=== PATIENT | male | born 1950 | race Caucasian/White ===

== ENCOUNTER 2018-08-19 10:18 | Day surgery (SDC) | payer MEDICARE ==
[~2018-08-19] VITALS: Ht 180.3 cm; Wt 99.0 kg
[2018-08-19] MEDS ORDERED: SODIUM CHLORIDE 0.9% 500 ML IV PRN (11:14)
[2018-08-19 11:24] VITALS: BP 151/114
[2018-08-19] MEDS ORDERED: SODIUM CHLORIDE FLUSH 10ML SYR IVF SCH (11:30)
[2018-08-19] MEDS ORDERED: DILT-8 PO (11:41)
[2018-08-19] MEDS ORDERED: DIPH25CA61 PO (11:41)
[2018-08-19] MEDS ORDERED: APIX2.5T PO (11:41)
[2018-08-19] MEDS ORDERED: FURO-93 PO (11:41)
[2018-08-19 11:42] LABS: ANION GAP 7 mmol/L (5-15); CALCIUM 9.4 mg/dL (8.5-10.1); CHLORIDE 107 mmol/L (98-107); CREATININE 1.03 mg/dL (0.7-1.3)
[2018-08-19] MEDS ORDERED: PROPOFOL 10 MG/ML, 20ML ONE (14:51)
== END 2018-08-19 16:38 | disposition home or self-care (01) ==
LOC: CACL 10:18
PROVIDERS: ATTEND Internal Medicine Cardiovascular Disease
DX: I48.91 Unspecified atrial fibrillation (principal); I50.9 Heart failure, unspecified
CPT/HCPCS: 36415; 80048; 92960; J2704

== ENCOUNTER 2018-09-13 09:48 | Inpatient (IN) | payer MEDICARE ==
[~2018-09-13] VITALS: Ht 180.3 cm; Wt 98.4 kg
[~2018-09-13 09:48] MED LIST: APIX2.5T PO; DILT-8 PO; DIPH25CA61 PO; FURO-93 PO
[2018-09-13] MEDS ORDERED: BISACODYL 10 MG SUPP PR PRN (12:00)
[2018-09-13] MEDS ORDERED: ZOLPIDEM 5MG TABLET PO PRN (12:00)
[2018-09-13] MEDS ORDERED: BISACODYL 5 MG EC TABLET PO PRN (12:00)
[2018-09-13] MEDS ORDERED: ACETAMINOPHEN 325 MG TABLET PO PRN (12:00)
[2018-09-13] MEDS ORDERED: ONDANSETRON 2MG/ML, 2ML IVPush PRN (12:00)
[2018-09-13 12:13] LABS: ANION GAP 5 mmol/L (5-15); CALCIUM 8.8 mg/dL (8.5-10.1); CHLORIDE 109 mmol/L (98-107); CHOLESTEROL, TOTAL 195 mg/dL (140-239); CREATININE 0.94 mg/dL (0.7-1.3); TRIGLYCERIDES 176 mg/dL (50-200); VLDL CHOLESTEROL 35 mg/dL (0-25)
[2018-09-13] MEDS: SOTALOL 80MG TABLET PO SCH ×2 (12:15→21:14)
[2018-09-13 12:17] LABS: CHOL/HDL RATIO 4.1; FREE T4 (FREE THYROXINE) 0.94 ng/dL (0.76-1.46); HDL CHOL % 24 % (26-37); HDL CHOLESTEROL (DIRECT) 47 mg/dL (40-60); LDL CHOLESTEROL,CALCULATED 113 mg/dL (54-169); LDL/HDL RATIO 2.4 (0.5-3.0); TROPONIN I < 0.015 ng/mL (0.000-0.045)
[2018-09-13 12:26] VITALS: BP 137/86
[2018-09-13 16:12] LABS: TROPONIN I < 0.015 ng/mL (0.000-0.045)
[2018-09-13 20:35] VITALS: BP 149/76
[2018-09-13 21:12] VITALS: BP 127/83
[2018-09-13] MEDS: APIXABAN 5 MG TABLET PO SCH (21:14)
[2018-09-13 23:05] LABS: TROPONIN I < 0.015 ng/mL (0.000-0.045)
[2018-09-14 03:15] VITALS: BP 131/88
[2018-09-14 07:29] VITALS: BP 145/92
[2018-09-14] MEDS: APIXABAN 5 MG TABLET PO SCH ×2 (07:55→20:24)
[2018-09-14] MEDS: FUROSEMIDE 20 MG TABLET PO SCH (07:56)
[2018-09-14] MEDS: SOTALOL 80MG TABLET PO SCH ×2 (07:56→20:25)
[2018-09-14 12:51] VITALS: BP 155/97
[2018-09-14 20:00] VITALS: BP 135/80
[2018-09-14 20:21] VITALS: BP 156/85
[2018-09-15 00:57] VITALS: BP 152/89
[2018-09-15 07:56] VITALS: BP 143/95
[2018-09-15] MEDS: FUROSEMIDE 20 MG TABLET PO SCH (10:55)
[2018-09-15] MEDS: APIXABAN 5 MG TABLET PO SCH ×2 (10:55→22:07)
[2018-09-15] MEDS: SOTALOL 80MG TABLET PO SCH ×2 (10:55→22:07)
[2018-09-15 12:55] VITALS: BP 154/78
[2018-09-15 20:00] VITALS: BP 137/69
[2018-09-15 22:06] VITALS: BP 145/92
[2018-09-16 02:00] VITALS: BP 121/76
[2018-09-16 08:10] VITALS: BP 135/95
[2018-09-16] MEDS: SOTALOL 80MG TABLET PO SCH ×2 (08:15→18:33)
[2018-09-16] MEDS: APIXABAN 5 MG TABLET PO SCH (08:15)
[2018-09-16] MEDS: FUROSEMIDE 20 MG TABLET PO SCH (08:15)
[2018-09-16] MEDS ORDERED: PROPOFOL 10 MG/ML, 20ML ONE (11:18)
[2018-09-16 14:39] VITALS: BP 151/88
[2018-09-16] MEDS ORDERED: SOTA80TA18 PO (14:51)
[2018-09-16] MEDS ORDERED: APIX5TAB PO (14:51)
== END 2018-09-16 18:36 | disposition home or self-care (01) | DRG 309 ==
LOC: 5SO 09:48
PROVIDERS: ADMIT Internal Medicine Cardiovascular Disease; ATTEND Internal Medicine Cardiovascular Disease
PROC: 5A2204Z Restoration of Cardiac Rhythm, Single (ICD-10-PCS; principal; 2018-09-13)
DX: I48.0 Paroxysmal atrial fibrillation (principal); D68.69 Other thrombophilia; I50.30 Unspecified diastolic (congestive) heart failure; I11.0 Hypertensive heart disease with heart failure; Z79.01 Long term (current) use of anticoagulants; Z87.891 Personal history of nicotine dependence
CPT/HCPCS: 36415; 71046; 80048; 80061; 84439; 84443; 84484; 85014; 85018; 92960; 93005; G0378; J2704

== ENCOUNTER → 2018-10-06 | Outpatient (CLI) | payer MEDICARE ==
[~2018-10-06] MED LIST changes: +APIX5TAB PO; +SOTA80TA18 PO
== END | disposition home or self-care (01) ==
LOC: CVU 14:20
PROVIDERS: ATTEND Internal Medicine Cardiovascular Disease
DX: I08.1 Rheumatic disorders of both mitral and tricuspid valves (principal); I11.0 Hypertensive heart disease with heart failure; I50.33 Acute on chronic diastolic (congestive) heart failure; I48.91 Unspecified atrial fibrillation; E78.5 Hyperlipidemia, unspecified
CPT/HCPCS: 93306

== ENCOUNTER → 2019-06-01 | Outpatient (CLI) | payer MEDICARE ==
[~2019-06-01] MED LIST changes: +ACET325T26 PO; +COLC0.6C3 PO; +DILT120C11 PO; +LISI-424 PO; +OMNIPAQUE 350 MG/ML, 150 ML BOTTLE ONE; +SOTA80TA PO
[2019-06-01 15:27] LABS: BASOPHILS # (AUTO) 0.03 x10^3/uL (0-0.1); BASOPHILS % (AUTO) 1 % (0-1); EOSINOPHILS # (AUTO) 0.22 x10^3/uL (0-0.4); EOSINOPHILS % (AUTO) 3 % (1-7); LYMPHOCYTES # (AUTO) 1.61 x10^3/uL (1-3.4); LYMPHOCYTES % (AUTO) 24 % (22-44); MD NO; MEAN CORPUSCULAR HEMOGLOBIN 31.3 pg (27.5-34.5); MEAN CORPUSCULAR HGB CONC 33.1 g/dL (33.2-36.2); MEAN CORPUSCULAR VOLUME 94.6 fL (81-97); MEAN PLATELET VOLUME 7.4 fL (7.4-10.4); MONOCYTES # (AUTO) 0.43 x10^3/uL (0.2-0.8); MONOCYTES % (AUTO) 7 % (2-9); NEUTROPHILS % (AUTO) 65 % (42-75); PLATELET COUNT 262 x10^3/uL (130-400); RED BLOOD COUNT 5.02 x10^6/uL (4.38-5.82); RED CELL DISTRIBUTION WIDTH 13.5 % (9.4-14.8)
[2019-06-01 15:34] LABS: CALCIUM 9.1 mg/dL (8.5-10.1); CREATININE 0.95 mg/dL (0.7-1.3)
[2019-06-01 15:46] LABS: ANION GAP 6 mmol/L (5-15); CHLORIDE 105 mmol/L (98-107)
== END | disposition home or self-care (01) ==
LOC: CFH 12:52
PROVIDERS: ATTEND Internal Medicine Cardiovascular Disease
DX: I48.91 Unspecified atrial fibrillation (principal); Z79.899 Other long term (current) drug therapy
CPT/HCPCS: 71046; 75572; 80048; 82565; 85025; Q9967

== ENCOUNTER 2019-06-03 06:25 | Observation (INO) | payer MEDICARE ==
[2019-06-01 17:30] VITALS: BP 145/82
[~2019-06-03] VITALS: Ht 180.3 cm; Wt 92.2 kg
[~2019-06-03 06:25] MED LIST changes: -ACET325T26 PO; -COLC0.6C3 PO; -OMNIPAQUE 350 MG/ML, 150 ML BOTTLE ONE
[2019-06-03] MEDS ORDERED: SODIUM CHLORIDE 0.9% 1,000 ML IV SCH ×2 (07:02→07:30)
[2019-06-03] MEDS ORDERED: LIDOCAINE 1%, 20ML ONE (07:26)
[2019-06-03] MEDS ORDERED: MIDAZOLAM 1 MG/ML, 2ML ONE (08:14)
[2019-06-03] MEDS ORDERED: FENTANYL PF 250 MCG/5ML ONE (08:17)
[2019-06-03] MEDS ORDERED: SUCCINYLCHOLINE 20 MG/ML, 10ML ONE (08:47)
[2019-06-03] MEDS ORDERED: PROPOFOL 10 MG/ML, 20ML ONE (08:47)
[2019-06-03] MEDS ORDERED: ROCURONIUM 10MG/ML,5ML ONE (08:47)
[2019-06-03] MEDS ORDERED: DEXAMETHASONE 4 MG/ML, 1ML ONE (08:47)
[2019-06-03] MEDS ORDERED: HEPARIN 1,000 UNITS/ML, 10ML ONE ×3 (09:54)
[2019-06-03] MEDS ORDERED: ONDANSETRON 2MG/ML, 2ML ONE (11:33)
[2019-06-03] MEDS ORDERED: FENTANYL PF 100 MCG/2ML IV PRN (12:00)
[2019-06-03] MEDS ORDERED: LABETALOL 5MG/ML, 20ML IV PRN (12:00)
[2019-06-03] MEDS: APIXABAN 5 MG TABLET PO SCH ×2 (12:00→21:52)
[2019-06-03] MEDS ORDERED: EPHEDRINE 50 MG/ML, 1ML IVPush PRN (12:00)
[2019-06-03] MEDS ORDERED: MEPERIDINE/PF 25MG/ML,1ML IVPush PRN (12:00)
[2019-06-03] MEDS ORDERED: PROMETHAZINE 12.5 MG SUPP PR PRN (12:00)
[2019-06-03] MEDS ORDERED: HYDROmorphone 2 MG/ML, 1ML IVPush PRN (12:00)
[2019-06-03] MEDS ORDERED: hydrALAzine 20 MG/ML, 1ML IV PRN (12:00)
[2019-06-03] MEDS ORDERED: ACETAMINOPHEN 325 MG TABLET PO PRN ×2 (12:00)
[2019-06-03] MEDS ORDERED: ONDANSETRON ODT 8 MG PO PRN (12:00)
[2019-06-03] MEDS ORDERED: HALOPERIDOL 5 MG/ML IV PRN (12:00)
[2019-06-03] MEDS ORDERED: OXYcodone 5 MG/5 ML ORAL.SOL UDC PO PRN (12:00)
[2019-06-03] MEDS ORDERED: ALBUTEROL SULFATE 2.5 MG/3 ML NPPB PRN (12:00)
[2019-06-03] MEDS ORDERED: DIPHENHYDRAMINE 25 MG CAPSULE PO SCH (12:00)
[2019-06-03] MEDS ORDERED: DIAZEPAM 5 MG/ML, 2ML IVPush PRN (12:00)
[2019-06-03] MEDS ORDERED: ONDANSETRON 2MG/ML, 2ML IV PRN (12:00)
[2019-06-03] MEDS ORDERED: APIXABAN 5 MG TABLET PO SCH (12:00)
[2019-06-03] MEDS ORDERED: PROMETHAZINE 25 MG/ML, 1ML IV PRN (12:00)
[2019-06-03] MEDS ORDERED: MIDAZOLAM 1 MG/ML, 2ML IV PRN (12:00)
[2019-06-03] MEDS ORDERED: APIXABAN 5 MG TABLET ONE (12:11)
[2019-06-03 13:50] VITALS: BP 104/65
[2019-06-03 19:24] VITALS: BP 105/61
[2019-06-03 21:50] VITALS: BP 122/73
[2019-06-03] MEDS: DILTIAZEM 120 MG CAP.ER.12H PO SCH (21:51)
[2019-06-03] MEDS: COLCHICINE 0.6 MG CAPSULE PO SCH (21:51)
[2019-06-03] MEDS: SOTALOL 80MG TABLET PO SCH (21:52)
[2019-06-04 00:36] VITALS: BP 104/60
[2019-06-04 07:59] VITALS: BP 119/74
[2019-06-04] MEDS ORDERED: FUROSEMIDE 20 MG TABLET PO SCH (09:00)
[2019-06-04] MEDS ORDERED: LISINOPRIL 5 MG TABLET PO SCH (09:00)
[2019-06-04] MEDS: APIXABAN 5 MG TABLET PO SCH (09:31)
[2019-06-04] MEDS: DILTIAZEM 120 MG CAP.ER.12H PO SCH (09:31)
[2019-06-04] MEDS: SOTALOL 80MG TABLET PO SCH (09:31)
[2019-06-04] MEDS: COLCHICINE 0.6 MG CAPSULE PO SCH (09:31)
[2019-06-04] MEDS ORDERED: ACET325T26 PO (09:32)
[2019-06-04] MEDS ORDERED: COLC0.6C3 PO (09:32)
== END 2019-06-04 11:49 | disposition home or self-care (01) ==
LOC: CACL 06:25 → ORIP 11:41 → 5SO 14:01 → DCLOUNGE 06-04 11:35
PROVIDERS: ADMIT Internal Medicine Cardiovascular Disease; ATTEND Internal Medicine Cardiovascular Disease
DX: I48.91 Unspecified atrial fibrillation (principal); I48.92 Unspecified atrial flutter; I11.0 Hypertensive heart disease with heart failure; I50.9 Heart failure, unspecified; Z79.01 Long term (current) use of anticoagulants
CPT/HCPCS: 85347; 93308; 93312; 93321; 93325; 93613; 93655; 93656; 93657; 93662; C1730; C1732; C1759; C1766; C1893; C1894; G0378; J0330; J1100; J1644; J2250; J2405; J2704; J3010; J3490

== ENCOUNTER 2019-11-04 06:29 | Observation (INO) | payer MEDICARE ==
[2019-10-12 12:31] LABS: BASOPHILS # (AUTO) 0.04 x10^3/uL (0-0.1); BASOPHILS % (AUTO) 1 % (0-1); EOSINOPHILS # (AUTO) 0.14 x10^3/uL (0-0.4); EOSINOPHILS % (AUTO) 2 % (1-7); LYMPHOCYTES # (AUTO) 1.84 x10^3/uL (1-3.4); LYMPHOCYTES % (AUTO) 25 % (22-44); MD NO; MEAN CORPUSCULAR HEMOGLOBIN 30.9 pg (27.5-34.5); MEAN CORPUSCULAR HGB CONC 33.1 g/dL (33.2-36.2); MEAN CORPUSCULAR VOLUME 93.2 fL (81-97); MEAN PLATELET VOLUME 7.4 fL (7.4-10.4); MONOCYTES # (AUTO) 0.43 x10^3/uL (0.2-0.8); MONOCYTES % (AUTO) 6 % (2-9); NEUTROPHILS # (AUTO) 4.85 x10^3/uL (1.8-6.8); NEUTROPHILS % (AUTO) 67 % (42-75); PLATELET COUNT 237 x10^3/uL (130-400); RED BLOOD COUNT 5.33 x10^6/uL (4.38-5.82); RED CELL DISTRIBUTION WIDTH 14.1 % (9.4-14.8)
[2019-10-12 12:42] LABS: INTERNATIONAL NORMALIZED RATIO 0.96 (0.93-1.1); PROTHROMBIN TIME 10.2 Seconds (9.6-11.5)
[2019-10-12 12:43] LABS: ALANINE AMINOTRANSFERASE 29 U/L (12-78); ALBUMIN 3.8 g/dL (3.4-5.0); ANION GAP 5 mmol/L (5-15); CALCIUM 9.4 mg/dL (8.5-10.1); CHLORIDE 106 mmol/L (98-107); CREATININE 0.99 mg/dL (0.7-1.3)
[2019-10-12 12:45] LABS: ALKALINE PHOSPHATASE 88 U/L (45-117); BILIRUBIN,TOTAL 0.3 mg/dL (0.2-1.0); TOTAL PROTEIN 8.2 g/dL (6.4-8.2)
[~2019-11-04] VITALS: Ht 180.3 cm; Wt 95.4 kg
[~2019-11-04 06:29] MED LIST changes: +ACET325T26 PO; +AMLO10TA8 PO; +COLC0.6C3 PO; +LISI-170 PO
[2019-11-04] MEDS ORDERED: SODIUM CHLORIDE 0.9% 1,000 ML IV SCH ×2 (06:39→07:00)
[2019-11-04 06:51] VITALS: BP 134/96
[2019-11-04 07:11] LABS: BASOPHILS # (AUTO) 0.05 x10^3/uL (0-0.1); BASOPHILS % (AUTO) 1 % (0-1); EOSINOPHILS # (AUTO) 0.22 x10^3/uL (0-0.4); EOSINOPHILS % (AUTO) 3 % (1-7); LYMPHOCYTES # (AUTO) 2.07 x10^3/uL (1-3.4); LYMPHOCYTES % (AUTO) 29 % (22-44); MD NO; MEAN CORPUSCULAR HEMOGLOBIN 30.4 pg (27.5-34.5); MEAN CORPUSCULAR HGB CONC 33.2 g/dL (33.2-36.2); MEAN CORPUSCULAR VOLUME 91.5 fL (81-97); MEAN PLATELET VOLUME 7.4 fL (7.4-10.4); MONOCYTES # (AUTO) 0.58 x10^3/uL (0.2-0.8); MONOCYTES % (AUTO) 8 % (2-9); NEUTROPHILS # (AUTO) 4.12 x10^3/uL (1.8-6.8); NEUTROPHILS % (AUTO) 59 % (42-75); PLATELET COUNT 258 x10^3/uL (130-400); RED BLOOD COUNT 5.44 x10^6/uL (4.38-5.82); RED CELL DISTRIBUTION WIDTH 14.3 % (9.4-14.8)
[2019-11-04] MEDS ORDERED: LIDOCAINE 1%, 20ML ONE (07:11)
[2019-11-04 07:19] LABS: ANION GAP 5 mmol/L (5-15); CALCIUM 9.4 mg/dL (8.5-10.1); CHLORIDE 108 mmol/L (98-107); CREATININE 1.17 mg/dL (0.7-1.3)
[2019-11-04] MEDS ORDERED: MIDAZOLAM 1 MG/ML, 2ML ONE (07:45)
[2019-11-04] MEDS ORDERED: FENTANYL PF 100 MCG/2ML ONE (07:45)
[2019-11-04] MEDS ORDERED: LIDOCAINE-MPF 2% ,5ML ONE (07:47)
[2019-11-04] MEDS ORDERED: HEPARIN 1,000 UNITS/ML, 10ML ONE ×3 (07:49→09:48)
[2019-11-04] MEDS ORDERED: EPHEDRINE 50 MG/ML, 1ML IVPush PRN (08:00)
[2019-11-04] MEDS ORDERED: MEPERIDINE/PF 25MG/ML,1ML IVPush PRN (08:00)
[2019-11-04] MEDS ORDERED: LABETALOL 5MG/ML, 20ML IV PRN (08:00)
[2019-11-04] MEDS ORDERED: ACETAMINOPHEN 325 MG TABLET PO PRN (08:00)
[2019-11-04] MEDS ORDERED: OXYcodone 5 MG/5 ML ORAL.SOL UDC PO PRN (08:00)
[2019-11-04] MEDS ORDERED: ONDANSETRON 2MG/ML, 2ML IV PRN (08:00)
[2019-11-04] MEDS ORDERED: HYDROmorphone 2 MG/ML, 1ML IVPush PRN (08:00)
[2019-11-04] MEDS ORDERED: PROMETHAZINE 25 MG/ML, 1ML IV PRN (08:00)
[2019-11-04] MEDS ORDERED: hydrALAzine 20 MG/ML, 1ML IV PRN (08:00)
[2019-11-04] MEDS ORDERED: FENTANYL PF 100 MCG/2ML IV PRN (08:00)
[2019-11-04] MEDS ORDERED: KETOROLAC 30 MG/1 ML ONE (08:41)
[2019-11-04] MEDS ORDERED: PHENYLEPHRINE 10 MG/ML ONE ×4 (08:55→11:03)
[2019-11-04] MEDS ORDERED: SUGAMMADEX 200 MG/2 ML IVPush ONE (08:56)
[2019-11-04] MEDS ORDERED: PROPOFOL 10 MG/ML, 20ML ONE (08:56)
[2019-11-04] MEDS ORDERED: GLYCOPYRROLATE 0.2MG/1ML, 5ML ONE (08:56)
[2019-11-04] MEDS ORDERED: DEXAMETHASONE 4 MG/ML, 1ML ONE (08:56)
[2019-11-04] MEDS ORDERED: ROCURONIUM 10MG/ML,5ML ONE ×3 (08:56→11:03)
[2019-11-04] MEDS ORDERED: NEOSTIGMINE 1 MG/ML, 10ML ONE (08:56)
[2019-11-04] MEDS ORDERED: SUCCINYLCHOLINE 20 MG/ML, 10ML ONE (08:56)
[2019-11-04] MEDS ORDERED: ONDANSETRON 2MG/ML, 2ML ONE (08:56)
[2019-11-04] MEDS ORDERED: VASOPRESSIN 20 UNIT/ML, 1ML ONE ×3 (09:18→11:03)
[2019-11-04] MEDS ORDERED: APIXABAN 5 MG TABLET ONE (13:42)
[2019-11-04] MEDS ORDERED: APIXABAN 5 MG TABLET PO ONE (13:48)
[2019-11-04 15:09] VITALS: BP 109/68
[2019-11-04 19:19] VITALS: BP 119/73
[2019-11-04] MEDS: COLCHICINE 0.6 MG CAPSULE PO SCH (20:47)
[2019-11-04] MEDS: APIXABAN 5 MG TABLET PO SCH (20:48)
[2019-11-04] MEDS: SOTALOL 80MG TABLET PO SCH (20:48)
[2019-11-05 01:08] VITALS: BP 116/71
[2019-11-05] MEDS ORDERED: COLC0.6C3 PO (08:10)
[2019-11-05 08:25] VITALS: BP 143/83
[2019-11-05] MEDS: APIXABAN 5 MG TABLET PO SCH (08:53)
[2019-11-05] MEDS: SOTALOL 80MG TABLET PO SCH (08:54)
[2019-11-05] MEDS: COLCHICINE 0.6 MG CAPSULE PO SCH (08:54)
[2019-11-05] MEDS ORDERED: LISINOPRIL 20 MG TABLET PO SCH (09:00)
[2019-11-05] MEDS ORDERED: AMLODIPINE 10 MG TAB PO SCH (09:00)
== END 2019-11-05 12:55 | disposition home or self-care (01) ==
LOC: CACL 06:29 → EDSTATUS 08:00 → ORIP 12:57 → 5SO 14:42
PROVIDERS: ADMIT Internal Medicine Cardiovascular Disease; ATTEND Internal Medicine Cardiovascular Disease
DX: I48.91 Unspecified atrial fibrillation (principal); I48.92 Unspecified atrial flutter; I10 Essential (primary) hypertension; Z79.01 Long term (current) use of anticoagulants; Z68.29 Body mass index [BMI] 29.0-29.9, adult
CPT/HCPCS: 36415; 71046; 80048; 80053; 85025; 85347; 85610; 85730; 93306; 93312; 93321; 93325; 93613; 93655; 93656; 93657; 93662; C1730; C1732; C1759; C1766; C1893; C1894; G0378; J0330; J1100; J1644; J1885; J2250; J2370; J2405; J2704; J3010; J3490; J2710

== ENCOUNTER 2019-11-06 08:26 | Inpatient (IN) | payer MEDICARE ==
[~2019-11-06] VITALS: Ht 180.3 cm; Wt 107.0 kg
--- NOTE | 2019-11-06 08:37 | NUR ---
PT SAYRA HOLLAND TRANSFER FROM [facility]. PER PT, HE WOKE UP THIS MORNING WITH SOB/DYSPNEA AT APPROXIMATELY 3 AM THIS MORNING. 11/03, PT HAD CARDIAC CATH AND ABLATION FOR ARRHYTHMIA. PT WAS TOLD BY FACTORY HELPER TO D/C ELIQUIS 5 MG AFTER PROCEDURE. UPON ARRIVAL TO [facility] ED, PT VSS. PT ATTACHED TO SERVICE TECH/WELDER AND VS MONITORS. EKG DONE AT BS. EKG DONE AT BS UPON ARRIVAL BY COATING MIXER SUPERVISOR. PT DENIES ANY OTHER NEEDS AT THIS TIME. CALL LIGHT IS WITHIN REACH.
--- NOTE | 2019-11-06 08:48 | NUR ---
DR. NOONAN AT FOR PT HISTORY AND ASSESSMENT.
[2019-11-06 09:38] LABS: MEAN CORPUSCULAR HEMOGLOBIN 30.4 pg (27.5-34.5); MEAN CORPUSCULAR HGB CONC 33.3 g/dL (33.2-36.2); MEAN CORPUSCULAR VOLUME 91.3 fL (81-97); MEAN PLATELET VOLUME 7.1 fL (7.4-10.4); PLATELET COUNT 220 x10^3/uL (130-400); RED BLOOD COUNT 4.45 x10^6/uL (4.38-5.82); RED CELL DISTRIBUTION WIDTH 14.4 % (9.4-14.8)
[2019-11-06 09:43] LABS: ALANINE AMINOTRANSFERASE 27 U/L (12-78); ALBUMIN 3.3 g/dL (3.4-5.0); ANION GAP 7 mmol/L (5-15); CALCIUM 8.4 mg/dL (8.5-10.1); CHLORIDE 107 mmol/L (98-107); CREATININE 0.94 mg/dL (0.7-1.3)
[2019-11-06 09:47] LABS: ALKALINE PHOSPHATASE 72 U/L (45-117); BILIRUBIN,TOTAL 0.9 mg/dL (0.2-1.0); TOTAL PROTEIN 7.2 g/dL (6.4-8.2)
[2019-11-06 09:49] LABS: TROPONIN I 0.951 ng/mL (0.000-0.045)
[2019-11-06 09:51] LABS: BASOPHILS # (AUTO) 0.11 x10^3/uL (0-0.1); BASOPHILS % (AUTO) 1 % (0-1); EOSINOPHILS # (AUTO) 0.11 x10^3/uL (0-0.4); EOSINOPHILS % (AUTO) 1 % (1-7); LYMPHOCYTES # (AUTO) 1.43 x10^3/uL (1-3.4); LYMPHOCYTES % (AUTO) 9 % (22-44); MD SCAN; MONOCYTES % (AUTO) 7 % (2-9); NEUTROPHILS # (AUTO) 14.18 x10^3/uL (1.8-6.8); NEUTROPHILS % (AUTO) 84 % (42-75)
[2019-11-06] MEDS ORDERED: CEFTRIAXONE PMX 1GM/50ML 50 ML IV ONE (10:00)
[2019-11-06] MEDS ORDERED: AZITHROMYCIN 500 MG in SODIUM CHLORIDE 0.9% 250 ML IV ONE (10:00)
--- NOTE | 2019-11-06 10:13 | NUR ---
PT PROVIDED URINAL AT THIS TIME. LAB AT BS TO DRAW BCs AT THIS TIME. VSS AND UPDATED IN EMR.
[2019-11-06] MEDS ORDERED: APIXABAN 5 MG TABLET PO ONE (10:30)
[2019-11-06] MEDS ORDERED: CEFTRIAXONE PMX 1GM/50ML 50 ML ONE (10:45)
[2019-11-06] MEDS ORDERED: APIXABAN 5 MG TABLET ONE (10:49)
--- NOTE | 2019-11-06 10:53 | NUR ---
IV ABX STARTED PER X 2 VERIFIED PRIOR TO ADMINISTRATION. PER DR. NOONAN, PT NOT TO RECEIVE ELIQUIS ORDERED.
[2019-11-06] MEDS ORDERED: ONDANSETRON ODT 4 MG PO PRN (11:00)
[2019-11-06] MEDS ORDERED: hydrALAzine 20 MG/ML, 1ML IVPush PRN (11:00)
[2019-11-06] MEDS ORDERED: ONDANSETRON 2MG/ML, 2ML IVPush PRN (11:00)
[2019-11-06] MEDS ORDERED: ACETAMINOPHEN 325 MG TABLET PO PRN (11:00)
[2019-11-06] MEDS ORDERED: morphine SULFATE 10 MG/ML, 1ML IVPush PRN (11:00)
[2019-11-06] MEDS ORDERED: BACLOFEN 10 MG TABLET PO PRN (11:00)
[2019-11-06] MEDS ORDERED: LISINOPRIL 20 MG TABLET ONE (12:14)
[2019-11-06] MEDS ORDERED: COLCHICINE 0.6 MG CAPSULE ONE (12:14)
--- NOTE | 2019-11-06 12:37 | NUR ---
REPORT OF PT TO RADHA LARSEN. ALL QUESTIONS ANSWERED. MEDICATIONS HAVE NOT ARRIVED YET VIA TUBE SYSTEM. CHAVA AWARE AND WILL ADMINISTER ON FLOOR. PT UPDATED ON ROOM ASSIGMENT.
[2019-11-06 13:03] VITALS: BP 134/76
[2019-11-06 13:04] VITALS: BP 134/76
[2019-11-06] MEDS: LISINOPRIL 20 MG TABLET PO SCH (14:38)
[2019-11-06] MEDS: COLCHICINE 0.6 MG CAPSULE PO SCH ×2 (14:39→20:16)
[2019-11-06] MEDS: SOTALOL 80MG TABLET PO SCH ×2 (14:39→20:16)
[2019-11-06 15:28] LABS: RAPID INFLUENZA A Negative (Negative); RAPID INFLUENZA B Negative (Negative)
[2019-11-06] MEDS: APIXABAN 5 MG TABLET PO SCH (20:16)
[2019-11-06 20:18] VITALS: BP 136/77
[2019-11-07 00:09] LABS: TROPONIN I 0.541 ng/mL (0.000-0.045)
[2019-11-07 01:50] VITALS: BP 118/76
[2019-11-07 06:08] LABS: ANION GAP 3 mmol/L (5-15); BASOPHILS # (AUTO) 0.01 x10^3/uL (0-0.1); BASOPHILS % (AUTO) 0 % (0-1); CALCIUM 8.6 mg/dL (8.5-10.1); CHLORIDE 108 mmol/L (98-107); CREATININE 0.76 mg/dL (0.7-1.3); EOSINOPHILS # (AUTO) 0.25 x10^3/uL (0-0.4); EOSINOPHILS % (AUTO) 3 % (1-7); LYMPHOCYTES # (AUTO) 1.81 x10^3/uL (1-3.4); LYMPHOCYTES % (AUTO) 18 % (22-44); MD NO; MEAN CORPUSCULAR HEMOGLOBIN 30.5 pg (27.5-34.5); MEAN CORPUSCULAR HGB CONC 33.3 g/dL (33.2-36.2); MEAN CORPUSCULAR VOLUME 91.5 fL (81-97); MEAN PLATELET VOLUME 7.9 fL (7.4-10.4); MONOCYTES # (AUTO) 0.83 x10^3/uL (0.2-0.8); MONOCYTES % (AUTO) 9 % (2-9); NEUTROPHILS # (AUTO) 6.94 x10^3/uL (1.8-6.8); NEUTROPHILS % (AUTO) 71 % (42-75); PLATELET COUNT 179 x10^3/uL (130-400); RED BLOOD COUNT 3.79 x10^6/uL (4.38-5.82); RED CELL DISTRIBUTION WIDTH 14.6 % (9.4-14.8)
[2019-11-07 07:51] VITALS: BP 137/79
[2019-11-07] MEDS: COLCHICINE 0.6 MG CAPSULE PO SCH (10:15)
[2019-11-07] MEDS: APIXABAN 5 MG TABLET PO SCH (10:15)
[2019-11-07] MEDS: LISINOPRIL 20 MG TABLET PO SCH (10:16)
[2019-11-07] MEDS: SOTALOL 80MG TABLET PO SCH (10:16)
[2019-11-07] MEDS ORDERED: CEFTRIAXONE PMX 1GM/50ML 50 ML IV SCH (11:00)
[2019-11-07] MEDS ORDERED: AZITHROMYCIN 500 MG in SODIUM CHLORIDE 0.9% 250 ML IV SCH (11:00)
[2019-11-07] MEDS ORDERED: AZIT500T PO (13:06)
[2019-11-07] MEDS ORDERED: CEFD300C37 PO (13:06)
[2019-11-07] MEDS ORDERED: APIX5TAB PO (13:06)
[2019-11-07 13:54] VITALS: BP 113/71
== END 2019-11-07 16:05 | disposition home or self-care (01) | DRG 871 ==
LOC: ED 08:49 → EDIP 10:20 → SUATTDRO 10:23 → 3WST 12:50
PROVIDERS: ADMIT Hospitalist; ATTEND Hospitalist
DX: A41.9 Sepsis, unspecified organism (principal); J18.9 Pneumonia, unspecified organism; J96.01 Acute respiratory failure with hypoxia; D68.69 Other thrombophilia; I48.91 Unspecified atrial fibrillation; I10 Essential (primary) hypertension; Z79.899 Other long term (current) drug therapy; Z20.828 Contact with and (suspected) exposure to other viral communicable diseases
CPT/HCPCS: 36415; 71045; 80048; 80053; 83605; 83880; 84145; 84484; 85025; 87040; 87400; 87486; 87581; 87633; 87798; 93005; 96374; 96375; G0378; J0456; J0696; J7050; U0001